=== PATIENT | female | born 1985 | race Caucasian/White ===

== ENCOUNTER 2016-11-26 19:31 | Outpatient (CLI) | payer MEDICAID ==
[~2016-11-26] VITALS: Ht 154.9 cm; Wt 83.5 kg
[2016-11-26 19:43] VITALS: Ht 154.9 cm; Wt 83.5 kg
[2016-11-26] MEDS ORDERED: NITR-58 PO (19:44)
[2016-11-26] MEDS ORDERED: PNV91TAB6 PO (19:44)
--- NOTE | 2016-11-26 20:55 | CONS ---
Date/Time of Note Date/Time of Note DATE: 11/26/16 TIME: 20:51 Assessment/Plan Assessment/Plan Additional Assessment/Plan No e/o ptl. Discharge home with ptl precautions. Complete antibiotic course. F/u with OB. Consultation Date/Type/Reason Admit Date/Time Hx of Present Illness at 25 weeks with cramping, urinary frequency. Patient already diagnosed with UTI and on macrobid for last 2 days. Reports cramping has subsided. Denies LOF, VB. +FM. Getting PNC, no complications. Past Medical History Medical History: no pertinent history Past Surgical History Past Surgical Hx: no surgical history Social History Other Social History Denies habits. Exam/Review of Systems Exam Gen: NAD HEENT: NCAT CV: RRR Pulm: CTAB Abd: gravid, NT Back: no CVAT Ext: NT FHT: reassuring [place]: no BRYN Bell Nov 26, 2016 20:55
--- NOTE | 2016-11-26 21:09 | TRIAGE ---
OB Triage Datetime Report Generated by CPN: 11/26/2016 21:09 Datetime: 11/26/2016 20:45 Stage of : OB Triage Datetime: 11/26/2016 19:54 Vaginal Exam Membrane Status: Intact Datetime: 11/26/2016 19:51 Temperature Route: Oral Datetime: 11/26/2016 19:40 Stage of : OB Triage Assessment Type: Triage EGA: 25.0 Maternal Assessment Level of Consciousness: Fully Conscious Headache: Denies Blurred Vision: No Respiratory Effort: Unlabored; Regular Rhythm; Equal Expansion Nausea/Vomiting: Denies RUQ Epigastric Pain: Denies Facial Edema: None Temperature Route: Axillary Fall Risk Assessment History of Falling: (0) No Secondary Diagnosis: (0) No Ambulatory Aid: (0) Bedrest/Nurse Assist IV Therapy: (0) No Gait: (0) Normal/Bedrest/Immobile Mental Status: (0) Oriented to Own Ability Fall Score: 0 Fall Risk Score Definition: No Risk: No action required Datetime: 11/26/2016 19:39 Time of Arrival: 11/26/2016 19:27 Arrived By: Wheelchair Arrived From: Home Chief Complaint: CRAMPING WITH VAG DISCHARGE Movement: Present Contractions: Unsure Contractions: irregular Rupture of Membranes: Denies Vaginal Bleeding: None Vaginal Discharge: Present Recent Sexual Intercouse: Denies Abdominal Trauma: Not Applicable Patient Complaints: Cramping Additional Patient Complaints: TAKING MACROBID FOR UTI Provider Notified: 23 Initial Plan: EFM, CALL OB
== END 2016-11-26 20:45 | disposition home or self-care (01) ==
LOC: OBT 19:31 → L-D 19:32 → OBT 20:45
PROVIDERS: ATTEND Obstetrics & Gynecology
DX: O23.42 Unspecified infection of urinary tract in pregnancy, second trimester (principal); Z3A.25 25 weeks gestation of pregnancy
CPT/HCPCS: G0463

== ENCOUNTER 2017-01-20 20:00 | Outpatient (CLI) | payer MEDICAID ==
[~2017-01-20] VITALS: Ht 152.4 cm; Wt 84.4 kg
[~2017-01-20 20:00] MED LIST: NITR-58 PO; PNV91TAB6 PO
[2017-01-20] MEDS ORDERED: CEPH500C PO (20:18)
[2017-01-20 21:00] VITALS: Ht 152.4 cm; Wt 84.4 kg
[2017-01-20 21:03] VITALS: BP 107/59; PULSE 93; RESP 18
[2017-01-20 21:46] LABS: ADD SCAN DIFF NO
[2017-01-20 21:48] LABS: BASOPHILS % 0.2 % (0.0-2.0); EOSINOPHILS # 0.1 10^3/ul (0.0-0.5); EOSINOPHILS % 0.9 % (0.0-7.0); HEMATOCRIT 36.4 % (37.0-47.0); HEMOGLOBIN 11.9 g/dl (12.0-16.0); LYMPHOCYTES # 2.2 10^3/ul (0.8-2.9); LYMPHOCYTES % 24.4 % (15.0-51.0); MEAN CORPUSCULAR HEMOGLOBIN 27.9 pg (29.0-33.0); MEAN CORPUSCULAR HGB CONC 32.7 g/dl (32.0-37.0); MEAN CORPUSCULAR VOLUME 85.4 fl (82.0-101.0); MEAN PLATELET VOLUME 10.4 fl (7.4-10.4); MONOCYTE # 0.7 10^3/ul (0.3-0.9); MONOCYTES % 7.7 % (0.0-11.0); NEUTROPHIL # 6.1 10^3/ul (1.6-7.5); NEUTROPHILS % 66.3 % (39.0-77.0); PLATELET COUNT 212 10^3/UL (140-415); RED BLOOD COUNT 4.26 10^6/ul (4.20-5.40); WHITE BLOOD COUNT 9.2 10^3/ul (4.8-10.8)
[2017-01-20 21:52] LABS: ADD UMIC YES; UR BILIRUBIN (Dip) NEGATIVE (NEGATIVE); UR BLOOD (Dip) NEGATIVE (NEGATIVE); UR COLOR LT. YELLOW (YELLOW); UR GLUCOSE (Dip) NEGATIVE (NEGATIVE); UR KETONES (Dip) NEGATIVE (NEGATIVE); UR LEUKOCYTE ESTERASE (Dip) TRACE (NEGATIVE); UR NITRITE (Dip) NEGATIVE (NEGATIVE); UR TOTAL PROTEIN (Dip) NEGATIVE (NEGATIVE); UR UROBILINOGEN (Dip) 0.2 E.U./dL (0.1-1.0)
[2017-01-20 22:00] LABS: UR CLARITY SL.HAZY (CLEAR)
[2017-01-20 22:01] LABS: UR BACTERIA RARE; UR SQUAMOUS EPITHELIAL CELL MODERATE; URINE RBCS NONE SEEN /HPF (0)
[2017-01-20 22:05] LABS: ALBUMIN 3.9 g/dl (3.3-4.9); ALBUMIN/GLOBULIN RATIO 1.39; BILIRUBIN,INDIRECT 0.1 mg/dl (0-1.1); BILIRUBIN,TOTAL 0.1 mg/dl (0.2-1.3); CALCIUM 9.3 mg/dl (8.4-10.2); CREATININE 0.51 mg/dl (0.44-1.00); POTASSIUM 3.9 mmol/L (3.5-5.1); TOTAL PROTEIN 6.7 g/dl (6.1-8.1)
--- NOTE | 2017-01-20 23:09 | PN ---
Triage Information Date/Time 01/20/17 2210 Weeks of Gestation 32w6d : 4 Para: 2 Diabetes: none Hypertention: none Additional information lt lower back ahe on cephalexin for UTI on second day had another episode of UTI mo ago txed with macrobid urinary frequency Objective Vital Signs Date Time Temp Pulse Resp B/P Pulse Ox O2 Delivery O2 Flow Rate FiO2 01/20/17 21:03 98.0 93 18 107/59 Room Air Heart Rate: 140's Contractions: None Exam CVA neg for tenderness abdomen soft no tenderness Results/Medications Result Diagram: 01/20/17213701/20/172137 Results 24 hrs Laboratory Tests Test 01/20/17 21:38 White Blood Count 9.2 Red Blood Count 4.26 Hemoglobin 11.9 L Hematocrit 36.4 L Mean Corpuscular Volume 85.4 Mean Corpuscular Hemoglobin 27.9 L Mean Corpuscular Hemoglobin Concent 32.7 Red Cell Distribution Width 13.0 Platelet Count 212 Mean Platelet Volume 10.4 Neutrophils % 66.3 Lymphocytes % 24.4 Monocytes % 7.7 Eosinophils % 0.9 Basophils % 0.2 Nucleated Red Blood Cells % 0.0 Neutrophils # 6.1 Lymphocytes # 2.2 Monocytes # 0.7 Eosinophils # 0.1 Basophils # 0.0 Nucleated Red Blood Cells # 0.0 Urine Color LT. YELLOW Urine Clarity SL.HAZY Urine pH 6.5 Urine Specific [place] <=1.005 L Urine Ketones NEGATIVE Urine Nitrite NEGATIVE Urine Bilirubin NEGATIVE Urine Urobilinogen 0.2 E.U./dL Urine Leukocyte Esterase TRACE H Urine Microscopic RBC NONE SEEN Urine Microscopic WBC 5-10 Urine Squamous Epithelial Cells MODERATE Urine Bacteria RARE Urine Hemoglobin NEGATIVE Urine Glucose NEGATIVE Urine Total Protein NEGATIVE Sodium Level 137 Potassium Level 3.9 Chloride Level 107 Carbon Dioxide Level 24 Anion Gap 10 Blood Urea Nitrogen 7 Creatinine 0.51 Glucose Level 102 Calcium Level 9.3 Total Bilirubin 0.1 L Direct Bilirubin 0.00 Indirect Bilirubin 0.1 Aspartate Amino Transf (AST/SGOT) 17 Alanine Aminotransferase (ALT/SGPT) 22 Alkaline Phosphatase 114 Total Protein 6.7 Albumin 3.9 Globulin 2.80 Albumin/Globulin Ratio 1.39 Medications cephalexin Assessment/Plan IUP 32w6d not in labor UTI plan continue antibiotica urine culture sent RTH prn with routine labor instructions given increase fluid intake d/s home NOHEMY PATE MD Jan 20, 2017 23:09
--- NOTE | 2017-01-21 03:14 | TRIAGE ---
OB Triage Datetime Report Generated by CPN: 01/21/2017 03:13 Datetime: 01/20/2017 22:10 Stage of : OB Triage Datetime: 01/20/2017 21:15 Stage of : OB Triage Datetime: 01/20/2017 20:20 Assessment Type: Triage Maternal Assessment Level of Consciousness: Fully Conscious DTR's/Clonus: DTRs 2+; No Clonus Headache: Denies Blurred Vision: No Respiratory Effort: Unlabored; Regular Rhythm; Equal Expansion Breath Sounds, Left: Clear and Equal Breath Sounds, Right: Clear and Equal Nausea/Vomiting: Denies RUQ Epigastric Pain: Denies Lower Extremities Edema: None Degree: None Upper Extremities Edema: None Degree: None Facial Edema: None Fall Risk Assessment History of Falling: (0) No Secondary Diagnosis: (0) No Ambulatory Aid: (0) Bedrest/Nurse Assist IV Therapy: (0) No Gait: (0) Normal/Bedrest/Immobile Mental Status: (0) Oriented to Own Ability Fall Score: 0 Fall Risk Score Definition: No Risk: No action required Datetime: 01/20/2017 20:19 Labor Evaluation Monitor Mode: External Contraction Comments: Applied Heart Rate Monitor Mode: External US Comments: Applied Datetime: 01/20/2017 20:15 Time of Arrival: 01/20/2017 19:53 EGA: 32.6 Arrived By: Wheelchair Arrived From: Home Chief Complaint: Back pain, pelvic pressure Movement: Present Contractions: Denies/Absent Rupture of Membranes: Denies Vaginal Bleeding: None Vaginal Discharge: Denies Recent Sexual Intercouse: Denies Abdominal Trauma: Not Applicable Patient Complaints: Back Pain; Other Initial Plan: EFM X2, UA, CBC Datetime: 11/26/2016 19:40 EGA: 25.0 Fall Score: 0 Fall Risk Score Definition: No Risk: No action required Datetime: 11/26/2016 19:39 Time Provider Notified: 11/26/2016 20:23 Provider Notified: UAJE
== END 2017-01-20 22:47 | disposition home or self-care (01) ==
LOC: OBT 20:00 → L-D 20:02 → OBT 22:47
PROVIDERS: ATTEND Obstetrics & Gynecology
DX: O23.43 Unspecified infection of urinary tract in pregnancy, third trimester (principal); Z3A.32 32 weeks gestation of pregnancy
CPT/HCPCS: 80053; 81001; 85025; 87086; Z7500; G0463

== ENCOUNTER 2017-02-24 13:29 | Inpatient (IN) | payer MEDICAID ==
[~2017-02-24] VITALS: Ht 154.9 cm; Wt 86.8 kg
[~2017-02-24 13:29] MED LIST changes: +CEPH500C PO; -NITR-58 PO
[2017-02-24] MEDS ORDERED: FERR236T PO (14:06)
[2017-02-24] MEDS ORDERED: NITR-58 PO (14:07)
[2017-02-24 14:08] VITALS: BP 135/75; PULSE 77; RESP 18
--- NOTE | 2017-02-24 15:50 | RADRPT ---
PROCEDURE: OB ultrasound for biophysical profile CLINICAL INDICATION: Contractions TECHNIQUE: Multiple sonographic images of the pelvis were obtained. Transabdominal view of the gr avid uterus are available for review. The images were reviewed on a PACS workstation. COMPARISON: None FINDINGS: breathing movement = 2/2 tone = 2/2 motion = 2/2 MAKENZIE = 2/2 MAKENZIE = 9.7 cm Single live intrauterine with cardiac activity. heart rate equals 143 beats p er minute. Presentation is cephalic. The placenta is left lateral, grade II. IMPRESSION: 1. Single viable intrauterine gestation. 2. Biophysical profile = 8/8. 3. MAKENZIE = 9.7 cm. RPTAT: KK .Ousmane Dodson MD, MD Date Time Electronically viewed and signed by .Ousmane Dodson MD, MD on 02/24/2017 15:50 .B/
[2017-02-24] MEDS ORDERED: LACTATED RINGER'S 1,000 ML IV SCH (16:15)
[2017-02-24] MEDS ORDERED: BUTORPHANOL 2 MG INJ IV PRN (16:30)
[2017-02-24] MEDS ORDERED: OXYTOCIN 30 UNITS/LR 500 ML IV SCH (16:30)
[2017-02-24] MEDS ORDERED: CARBOPROST 250 MCG INJ IM PRN (16:30)
[2017-02-24] MEDS ORDERED: OXYTOCIN 30 UNITS/LR 500 ML IV PRN (16:30)
[2017-02-24] MEDS ORDERED: MISOPROSTOL 200 MCG TAB PR PRN (16:30)
[2017-02-24] MEDS ORDERED: LIDOCAINE 1% (MPF) 30 ML INJ INJ PRN (16:30)
[2017-02-24] MEDS ORDERED: METHYLERGONOVINE 0.2 MG INJ IM PRN (16:30)
[2017-02-24 16:55] LABS: ADD SCAN DIFF NO
[2017-02-24] MEDS: OXYTOCIN 30 UNITS/LR 500 ML IV SCH ×4 (16:56→20:38)
[2017-02-24 16:57] LABS: BASOPHILS % 0.3 % (0.0-2.0); EOSINOPHILS % 0.3 % (0.0-7.0); HEMOGLOBIN 12.2 g/dl (12.0-16.0); LYMPHOCYTES # 2.2 10^3/ul (0.8-2.9); MEAN CORPUSCULAR HEMOGLOBIN 29.2 pg (29.0-33.0); MEAN CORPUSCULAR HGB CONC 33.9 g/dl (32.0-37.0); MEAN CORPUSCULAR VOLUME 86.1 fl (82.0-101.0); MEAN PLATELET VOLUME 11.5 fl (7.4-10.4); MONOCYTE # 0.5 10^3/ul (0.3-0.9); MONOCYTES % 4.6 % (0.0-11.0); NEUTROPHIL # 7.8 10^3/ul (1.6-7.5); NEUTROPHILS % 73.1 % (39.0-77.0); PLATELET COUNT 173 10^3/UL (140-415); RED BLOOD COUNT 4.18 10^6/ul (4.20-5.40); RED CELL DISTRIBUTION WIDTH 13.2 % (11.5-14.5); WHITE BLOOD COUNT 10.7 10^3/ul (4.8-10.8)
[2017-02-24] MEDS ORDERED: IBUPROFEN 600 MG TAB PO PRN (17:00)
[2017-02-24] MEDS ORDERED: ACETAMINOPHEN/CODEINE #3 TAB PO PRN ×3 (17:00→18:30)
[2017-02-24 17:14] LABS: INR 0.86; PROTIME 11.7 Sec (12.2-14.2); PT RATIO 0.9
[2017-02-24 17:15] LABS: PARTIAL THROMBOPLASTIN TIME 21.4 Sec (25.0-35.0)
--- NOTE | 2017-02-24 17:36 | HP ---
Date/Time of Note Date/Time of Note DATE: 02/24/17 TIME: 17:30 OB - History Hx of Present Free Text/Dictation 30 years old female 4 para 2 EDC March 11 at 37 weeks6/7 days admitted to [facility] in active labor cervical examination on admission cervix completely dilated 80-100% effacement vertex at -2 station contraction 2-3 minutes Chief Complaint: Labor Estimated Due Date: Mar 11, 2017 : 4 Para: 2 Spontaneous : 1 Care: Limited Care Ultrasounds: Normal mid trimester US Obstetrical Complications: None Medical Complications: None Past Family/Social History * Past Medical, Surgical, Family and Obstetric Histories reviewed from chart. Rubella: immune RPR/VDRL: Negative GBS Status: Negative HBsAG: Negative OB Admission Exam Vital Signs Vital Signs Vital Signs Date Time Temp Pulse Resp B/P Pulse Ox O2 Delivery O2 Flow Rate FiO2 02/24/17 14:08 98.1 77 18 135/75 96 Room Air Physical Exam HEENT: WNL Heart: Rhythm Normal Lungs: Clear, Equal Abdomen: WNL Extremities: Normal Cervical Dilatation: 10cm Effacement: Other (80%) Station: -2 Membranes: Ruptured Heart Rate: 130's Accelerations: Accelerations Present Decelerations: No Decelerations Varibility: Moderate Contractions on Admission: < 5 Minutes Apart Intensity: Firm Last 72 hours Lab Results CBC & BMP 02/24/17 16:40 OB Assessment/Plan Reason for admission: other (Attempt for normal vaginal delivery) YANET MYERS MD Feb 24, 2017 17:35
--- NOTE | 2017-02-24 17:39 | LDN ---
Date/Time of Note Date/Time of Note DATE: 02/24/17 TIME: 17:35 Delivery Summary Normal spontaneous vaginal delivery by Dr. MCKENNA in usual fashion without any complication Weeks of Gestation 37 weeks 6 /7 day Placenta Delivered: Spontaneously Meconium: none Episiotomy: No Laceration repair: None Anesthesia type: None Estimated blood loss: 250 Sponge & Needle done & correct: Yes All needle counts correct: Yes Any foreign bodies felt in the: No Problems: Infant Delivery Information Sex Infant Sex: female Apgars 1 Minute: 9 5 Minute: 9 Suctioning Nose & mouth suctioned at [place]: Yes Delee suction performed: No Umbilical Cord Umbilical cord with: 3 Vessels Cord presentations: nuchal cord Cord Blood was obtained: Yes YANET MYERS MD Feb 24, 2017 17:39
--- NOTE | 2017-02-24 17:41 | PN ---
Triage Information Date/Time Feb 24, 2017 at 14:00 Weeks of Gestation 37 weeks 6/ 7 day : 4 Para: 2 Diabetes: none Hypertention: none Objective Vital Signs Date Time Temp Pulse Resp B/P Pulse Ox O2 Delivery O2 Flow Rate FiO2 02/24/17 14:08 98.1 77 18 135/75 96 Room Air Heart Rate: 130's Contractions: < 5 Minutes Apart Results/Medications Result Diagram: 02/24/17 1640 Results 24 hrs Laboratory Tests Test 02/24/17 14:55 02/24/17 16:40 Membranes Rupture POSITIVE H White Blood Count 10.7 Red Blood Count 4.18 L Hemoglobin 12.2 Hematocrit 36.0 L Mean Corpuscular Volume 86.1 Mean Corpuscular Hemoglobin 29.2 Mean Corpuscular Hemoglobin Concent 33.9 Red Cell Distribution Width 13.2 Platelet Count 173 Mean Platelet Volume 11.5 H Neutrophils % 73.1 Lymphocytes % 21.0 Monocytes % 4.6 Eosinophils % 0.3 Basophils % 0.3 Neutrophils # 7.8 H Lymphocytes # 2.2 Monocytes # 0.5 Eosinophils # 0.0 Basophils # 0.0 Nucleated Red Blood Cells # 0.0 Prothrombin Time 11.7 L Prothrombin Time Ratio 0.9 INR International Normalized Ratio 0.86 Activated Partial Thromboplast Time 21.4 L Medications Current Medications Lactated Ringer's (Lr) 1,000 ml @ 125 mls/hr Q8H IV ; Start 02/24/17 at 16:15 Butorphanol Tartrate (Stadol) 2 mg Q2H PRN IV PAIN; Start 02/24/17 at 16:30 Lidocaine 30 ml 30 ml ONCE PRN INJ EPISIOTOMY/TEARING; Start 02/24/17 at 16:30 Oxytocin/Lactated Ringer's 500 ml @ 125 mls/hr ONCE IV ; Start 02/24/17 at 16: 30 Oxytocin/Lactated Ringer's 500 ml @ 0 mls/hr ONCE PRN IV For Hemorrhage Management; Start 02/24/17 at 16:30 Methylergonovine Maleate (Methergine) 0.2 mg ONCE PRN IM VAGINAL BLEEDING; Start 02/24/17 at 16:30 Carboprost Tromethamine (Hemabate) 250 mcg ONCE PRN IM VAGINAL BLEEDING; Start 02/24/17 at 16:30 Misoprostol (Cytotec) 1,000 mcg ONCE PRN [place] VAGINAL BLEEDING; Start 02/24/17 at 16:30 Ibuprofen (Motrin) 600 mg ONCE PRN PO Mild Pain (Pain Score 1-3) Last administered on 02/24/17t 16:55; Admin Dose 600 MG; Start 02/24/17 at 17:00; Stop 02/26/17 at 16:59 Acetaminophen/ Codeine Phosphate (Tylenol No.3) 2 tab ONCE PRN PO Moderate to Severe Pain (4-10); Start 02/24/17 at 17:00; Stop 02/26/17 at 16:59 YANET MYERS MD Feb 24, 2017 17:40
[2017-02-24 18:00] VITALS: BP 124/69; PULSE 65; RESP 19
[2017-02-24] MEDS ORDERED: OXYCODONE/ASPIRIN (4.88/325) TAB PO PRN ×2 (18:30)
[2017-02-24] MEDS ORDERED: ACETAMINOPHEN 325 MG TAB PO PRN (18:30)
[2017-02-24] MEDS ORDERED: BENZOCAINE 20% 56 ML SPRAY TOP PRN (18:30)
[2017-02-24] MEDS ORDERED: LANOLIN 7 GM TUBE TOP PRN (18:30)
[2017-02-24] MEDS ORDERED: DIBUCAINE 1% 30 GM OINT PR PRN (18:30)
[2017-02-24] MEDS ORDERED: ONDANSETRON 4 MG INJ IV PRN (18:30)
--- NOTE | 2017-02-24 18:43 | TRIAGE ---
OB Triage Datetime Report Generated by CPN: 02/24/2017 18:42 Datetime: 02/24/2017 18:00 Stage of : Recovery Pain Assessment Pain Scale: 3 Pain Presence: Intermittent Pain Type: Cramping Pain Location: Perineum Pain Goal: 3 Pain Relief Measures: Pain Medication Given; Comfort Measures Datetime: 02/24/2017 17:45 Stage of : Recovery Pain Assessment Pain Scale: 3 Pain Presence: Intermittent Pain Type: Cramping Pain Location: Perineum Pain Goal: 3 Pain Relief Measures: Pain Medication Given; Comfort Measures Pain Assessment Comments: bed bath, attempted to void on bedpan for 15 mins, new pitocin bag hung, baby given eyes and thighs Datetime: 02/24/2017 17:30 Stage of : Recovery Pain Assessment Pain Scale: 3 Pain Presence: Intermittent Pain Type: Cramping Pain Location: Perineum Pain Goal: 3 Pain Relief Measures: Pain Medication Given; Comfort Measures Datetime: 02/24/2017 17:15 Stage of : Recovery Pain Assessment Pain Scale: 3 Pain Presence: Intermittent Pain Type: Cramping Pain Location: Perineum Pain Goal: 3 Pain Relief Measures: Pain Medication Given; Comfort Measures Datetime: 02/24/2017 17:00 Stage of : Recovery Pain Assessment Pain Scale: 3 Pain Presence: Intermittent Pain Type: Cramping Pain Location: Perineum Pain Goal: 3 Pain Relief Measures: Pain Medication Given; Comfort Measures Datetime: 02/24/2017 16:45 Stage of : Recovery Pain Assessment Pain Scale: 3 Pain Presence: Intermittent Pain Type: Cramping Pain Location: Perineum Pain Goal: 3 Pain Relief Measures: Pain Medication Given; Comfort Measures Datetime: 02/24/2017 16:30 Stage of : Recovery Pain Assessment Pain Scale: 3 Pain Presence: Intermittent Pain Type: Cramping Pain Location: Perineum Pain Goal: 3 Pain Relief Measures: Pain Medication Given; Comfort Measures Datetime: 02/24/2017 16:15 Assessment Type: Admission Assessment Maternal Assessment Level of Consciousness: Fully Conscious DTR's/Clonus: DTRs 2+; No Clonus Headache: Denies Blurred Vision: No Respiratory Effort: Unlabored; Regular Rhythm; Equal Expansion Breath Sounds, Left: Clear and Equal Breath Sounds, Right: Clear and Equal Nausea/Vomiting: Denies RUQ Epigastric Pain: Denies Lower Extremities Edema: None Upper Extremities Edema: None Facial Edema: None Temperature Route: Oral Fall Risk Assessment History of Falling: (0) No Secondary Diagnosis: (0) No Ambulatory Aid: (0) Bedrest/Nurse Assist IV Therapy: (20) Yes Gait: (0) Normal/Bedrest/Immobile Mental Status: (0) Oriented to Own Ability Fall Score: 20 Fall Risk Score Definition: No Risk: No action required Pain Assessment Pain Scale: 6 Pain Presence: Intermittent Pain Type: Cramping Pain Location: Perineum Pain Goal: 3 Pain Relief Measures: Pain Medication Given; Comfort Measures Pain Assessment Comments: motrin 600mg po given Datetime: 02/24/2017 16:04 Comments: , BABY GIRL, SEE DELIVERY RECORD FOR DETAILS. Datetime: 02/24/2017 16:00 Labor Evaluation Frequency: 2-7 Monitor Mode: External Duration (sec)2399: 50-100 Quality: Mild Pattern: Normal: <= 5 Contractions in 10 Minutes Resting Tone [place]: Relaxed Heart Rate FHR Baseline Rate: 135 Monitor Mode: External US FHR Baseline Changes: No Baseline Change Variability: Moderate 6-25 bpm Accelerations: 15X15 Decelerations: None Category: Category I Pain Assessment Pain Scale: 9 Pain Presence: Intermittent Pain Type: Contraction Pain Location: Abdomen; Perineum Datetime: 02/24/2017 15:56 Vaginal Exam Dilatation (cms): 10.0 Effacement (%): 100 Station: 2 Exam By: SGARCIA Datetime: 02/24/2017 15:54 Vaginal Exam Dilatation (cms): 6.5 Effacement (%): 100 Station: 0 Exam By: CKUNIYOSHI Vaginal Bleeding: Normal Show Cervix, Consistency: Soft Cervix, Position: Midposition Presentation 'A': Breech Datetime: 02/24/2017 15:00 Headache: Denies Blurred Vision: No RUQ Epigastric Pain: Denies Facial Edema: None Labor Evaluation Frequency: 2-7 Monitor Mode: External Duration (sec)2399: 50-90 Quality: Mild Pattern: Normal: <= 5 Contractions in 10 Minutes Resting Tone [place]: Relaxed Heart Rate FHR Baseline Rate: 135 Monitor Mode: External US FHR Baseline Changes: No Baseline Change Variability: Moderate 6-25 bpm Accelerations: 15X15 Decelerations: None Pain Assessment Pain Scale: 7 Pain Presence: Intermittent Pain Type: Contraction Pain Location: Abdomen Datetime: 02/24/2017 14:15 Vaginal Exam Dilatation (cms): 0.0 Effacement (%): 80 Station: -2 Exam By: CKUNIYOSHI Vaginal Bleeding: Normal Show Cervix, Consistency: Soft Cervix, Position: Posterior Presentation 'A': Cephalic Datetime: 01/20/2017 23:30 Time of Arrival: 02/24/2017 13:25 EGA: 37.6 Arrived By: Ambulatory Arrived From: Home Chief Complaint: CTX - 1300, BLEEDING LIKE A LIGHT PERIOD FROM 0600, POSSIBLE SROM [id number], NO LEAK ING SINCE Movement: Present Contractions: Regular Time Contractions Began: 02/24/2017 13:00 Contractions: Q5MIN Rupture of Membranes: Unsure Vaginal Bleeding: Small Vaginal Discharge: Present Recent Sexual Intercouse: Yes Abdominal Trauma: Not Applicable Patient Complaints: Contractions Initial Plan: EFM x2, SVE, BPP, ROM+ Datetime: 01/20/2017 22:00 Stage of : OB Triage Labor Evaluation Frequency: X2 Monitor Mode: External Duration (sec)2399: 60 Quality: Mild Pattern: Normal: <= 5 Contractions in 10 Minutes Heart Rate FHR Baseline Rate: 140 Monitor Mode: External US FHR Baseline Changes: No Baseline Change Variability: Moderate 6-25 bpm Accelerations: 15X15 Decelerations: None Category: Category I Datetime: 01/20/2017 21:43 Monitor Mode: External US Datetime: 01/20/2017 21:31 Monitor Mode: External Monitor Mode: External US Datetime: 01/20/2017 21:00 Stage of : OB Triage Labor Evaluation Frequency: X2 Monitor Mode: External Duration (sec)2399: 50-70 Quality: Mild Pattern: Normal: <= 5 Contractions in 10 Minutes Heart Rate FHR Baseline Rate: 135 Monitor Mode: External US FHR Baseline Changes: No Baseline Change Variability: Moderate 6-25 bpm Accelerations: 15X15 Decelerations: None Category: Category I Datetime: 01/20/2017 20:20 Fall Score: 0 Fall Risk Score Definition: No Risk: No action required Datetime: 01/20/2017 20:15 EGA: 32.6 Datetime: 11/26/2016 19:40 EGA: 25.0 Fall Score: 0 Fall Risk Score Definition: No Risk: No action required Membranes Ruptured Date/Time: 02/24/2017 05:30 Membranes Rupture Method: Spontaneous Amniotic Fluid Color: Clear Amniotic Fluid Amount: Small Amniotic Fluid Odor: None
[2017-02-24 20:05] VITALS: BP 136/69; PULSE 75; RESP 20
[2017-02-24] MEDS: SENNA/DOCUSATE NA (8.6MG/50MG) TAB PO SCH (20:38)
[2017-02-24] MEDS: WITCH HAZEL/GLYCERIN PAD PR PRN (20:42)
[2017-02-24 22:33] LABS: BARBITURATES Negative (NEGATIVE); BENZODIAZEPINES Negative (NEGATIVE); CANNABINOIDS Negative (NEGATIVE); COCAINE Negative (NEGATIVE); OPIATES Negative (NEGATIVE)
[2017-02-24] MEDS: IBUPROFEN 600 MG TAB PO SCH (23:25)
[2017-02-25 00:35] VITALS: BP 122/66; PULSE 70; RESP 18
[2017-02-25 03:50] VITALS: BP 120/56; PULSE 74; RESP 17
[2017-02-25] MEDS: IBUPROFEN 600 MG TAB PO SCH ×3 (05:21→17:26)
[2017-02-25 07:35] VITALS: BP 120/70; PULSE 83; RESP 18
[2017-02-25] MEDS: WITCH HAZEL/GLYCERIN PAD PR PRN (08:51)
[2017-02-25] MEDS: SENNA/DOCUSATE NA (8.6MG/50MG) TAB PO SCH ×2 (08:51→21:17)
[2017-02-25 11:04] LABS: ADD SCAN DIFF NO
[2017-02-25 11:07] LABS: BASOPHILS % 0.2 % (0.0-2.0); EOSINOPHILS # 0.1 10^3/ul (0.0-0.5); EOSINOPHILS % 0.5 % (0.0-7.0); HEMATOCRIT 32.9 % (37.0-47.0); HEMOGLOBIN 10.5 g/dl (12.0-16.0); LYMPHOCYTES % 21.7 % (15.0-51.0); MEAN CORPUSCULAR HEMOGLOBIN 27.8 pg (29.0-33.0); MEAN CORPUSCULAR HGB CONC 31.9 g/dl (32.0-37.0); MEAN PLATELET VOLUME 11.5 fl (7.4-10.4); MONOCYTE # 0.6 10^3/ul (0.3-0.9); MONOCYTES % 6.3 % (0.0-11.0); NEUTROPHIL # 6.6 10^3/ul (1.6-7.5); NEUTROPHILS % 70.8 % (39.0-77.0); PLATELET COUNT 160 10^3/UL (140-415); RED BLOOD COUNT 3.78 10^6/ul (4.20-5.40); RED CELL DISTRIBUTION WIDTH 13.7 % (11.5-14.5); WHITE BLOOD COUNT 9.4 10^3/ul (4.8-10.8)
--- NOTE | 2017-02-25 15:35 | PN ---
Date/Time of Note Date/Time of Note DATE: 02/25/17 TIME: 15:35 OB Subjective Subjective Subjective Post normal vaginal delivery day 1 Afebrile vital signs are stable abdomen soft lochia moderate uterus firm extremity normal ambulation encouraged. Laboratory Tests Test 02/24/17 16:40 02/24/17 21:45 02/25/17 10:49 White Blood Count 10.710^3/ul 9.410^3/ul Red Blood Count 4.1810^6/ul 3.7810^6/ul Hemoglobin 12.2g/dl 10.5g/dl Hematocrit 36.0% 32.9% Mean Corpuscular Volume 86.1fl 87.0fl Mean Corpuscular Hemoglobin 29.2pg 27.8pg Mean Corpuscular Hemoglobin Concent 33.9g/dl 31.9g/dl Red Cell Distribution Width 13.2% 13.7% Platelet Count 25166^3/UL 19169^3/UL Mean Platelet Volume 11.5fl 11.5fl Neutrophils % 73.1% 70.8% Lymphocytes % 21.0% 21.7% Monocytes % 4.6% 6.3% Eosinophils % 0.3% 0.5% Basophils % 0.3% 0.2% Neutrophils # 7.810^3/ul 6.610^3/ul Lymphocytes # 2.210^3/ul 2.010^3/ul Monocytes # 0.510^3/ul 0.610^3/ul Eosinophils # 0.010^3/ul 0.110^3/ul Basophils # 0.010^3/ul 0.010^3/ul Nucleated Red Blood Cells # 0.010^3/ul 0.010^3/ul Prothrombin Time 11.7Sec Prothrombin Time Ratio 0.9 INR International Normalized Ratio 0.86 Activated Partial Thromboplast Time 21.4Sec Urine Opiates Screen Negative Urine Barbiturates Negative Urine Amphetamines Screen Negative Urine Benzodiazepines Screen Negative Urine Cocaine Screen Negative Urine Cannabinoids Negative Current Medications Medications (Trade) Dose Ordered Sig/Sana Route PRN Reason Start Time Stop Time Status Last Admin Dose Admin Lactated Ringer's (Lr) 1,000 ml @ 125 mls/hr Q8H IV 02/24/17 16:15 02/24/17 18:13 DC Butorphanol Tartrate (Stadol) 2 mg Q2H PRN IV PAIN 02/24/17 16:30 02/24/17 18:13 DC Lidocaine 30 ml 30 ml ONCE PRN INJ EPISIOTOMY/TEARING 02/24/17 16:30 02/24/17 18:13 DC Oxytocin/Lactated Ringer's 500 ml @ 125 mls/hr ONCE -MAY REPEAT X1 IV 02/24/17 16:30 02/24/17 18:13 DC 02/24/17 16:58 Oxytocin/Lactated Ringer's 500 ml @ 125 mls/hr ONCE IV 02/24/17 16:30 02/24/17 18:13 DC Oxytocin/Lactated Ringer's 500 ml @ 0 mls/hr ONCE PRN IV For Hemorrhage Management 02/24/17 16:30 02/24/17 18:13 DC Methylergonovine Maleate (Methergine) 0.2 mg ONCE PRN IM VAGINAL BLEEDING 02/24/17 16:30 02/24/17 18:13 DC Carboprost Tromethamine (Hemabate) 250 mcg ONCE PRN IM VAGINAL BLEEDING 02/24/17 16:30 02/24/17 18:13 DC Misoprostol (Cytotec) 1,000 mcg ONCE PRN [place] VAGINAL BLEEDING 02/24/17 16:30 02/24/17 18:13 DC Ibuprofen (Motrin) 600 mg ONCE PRN PO Mild Pain (Pain Score 1-3) 02/24/17 17:00 02/24/17 18:13 DC 02/24/17 16:55 Acetaminophen/ Codeine Phosphate 2 tab 2 tab ONCE PRN PO Moderate to Severe Pain (4-10) 02/24/17 17:00 02/24/17 18:13 DC Oxytocin/Lactated Ringer's 500 ml @ 125 mls/hr Q4H IV 02/24/17 18:10 02/25/17 02:09 DC 02/24/17 20:38 Ibuprofen (Motrin) 600 mg Q6 PO 02/25/17 00:00 02/25/17 11:40 Acetaminophen (Tylenol Tab) 650 mg Q4H PRN PO PAIN LEVEL 1-5 02/24/17 18:30 Acetaminophen/ Codeine Phosphate (Tylenol No.3) 1 tab Q4H PRN PO PAIN LEVEL 1-5 02/24/17 18:30 Acetaminophen/ Codeine Phosphate (Tylenol No.3) 2 tab Q4H PRN PO PAIN LEVEL 6-10 02/24/17 18:30 Oxycodone/Aspirin (Percodan) 1 tab Q3H PRN PO PAIN LEVEL 1-5 02/24/17 18:30 Oxycodone/Aspirin (Percodan) 2 tab Q3H PRN PO PAIN LEVEL 6-10 02/24/17 18:30 Ondansetron HCl (Zofran Inj) 4 mg Q6H PRN IV NAUSEA AND/OR VOMITING 02/24/17 18:30 Senna/Docusate Sodium (Senokot-S) 1 tab BID PO 02/24/17 21:00 02/25/17 08:51 Witch Ofe/ Glycerin (Tucks Pads) 1 pad BEDSIDE MEDICATION PRN [place] HEMORRHOID/EPISIOTMY PAIN 02/24/17 18:30 02/25/17 08:51 Benzocaine (Dermoplast [place]) 1 spray BEDSIDE MEDICATION PRN TOP HEMORRHOID/EPISIOTMY PAIN 02/24/17 18:30 02/24/17 20:42 Dibucaine (Nupercainal) 1 applic BEDSIDE MEDICATION PRN [place] HEMORRHOID/EPISIOTMY PAIN 02/24/17 18:30 Lanolin (Hnk-U-Qfbkym) 1 applic BEDSIDE MEDICATION PRN TOP BEDSIDE FOR LISA TO NIPPLES 02/24/17 18:30 02/24/17 20:43 Measles/Mumps/ Rubella Vaccine Live (Mmr Ii Vaccine) 0.5 ml ONCE ONCE SC* 02/26/17 09:00 02/26/17 09:01 YANET MYERS MD Feb 25, 2017 15:35
[2017-02-25 16:24] VITALS: BP 108/57; PULSE 77; RESP 19
[2017-02-25 20:10] VITALS: BP 126/54; PULSE 80; RESP 17
[2017-02-26 04:15] VITALS: BP 112/54; PULSE 68; RESP 17
[2017-02-26] MEDS: IBUPROFEN 600 MG TAB PO SCH ×2 (05:13)
[2017-02-26 08:25] VITALS: BP 107/56; PULSE 69; RESP 20
[2017-02-26] MEDS ORDERED: MEASLES,MUMPS,RUBELLA VACCINE INJ SC* ONE (09:00)
[2017-02-26] MEDS: SENNA/DOCUSATE NA (8.6MG/50MG) TAB PO SCH (09:28)
--- NOTE | 2017-02-26 10:29 | PD.PPDC ---
PEN RIDER Discharge Instruction Condition Patient Condition: Good Diet Diet: Resume Regular Diet Activity/Restrictions Activity: Normal Activity May Shower Follow-up Follow-up with Physician: 2, Week/Weeks Provider Information: Appointment clinic in 2 weeks for check Return to clinic for [facility] Instructions: Fever greater than 101 Chills Worsening abdominal pain Excessive Vaginal Bleeding More than 2 pads per hour Unable to tolerate diet YANET MYERS MD Feb 26, 2017 10:29
--- NOTE | 2017-02-26 10:31 | DS ---
Date/Time of Note Date/Time of Note DATE: 02/26/17 TIME: 10:29 Discharge Summary Admission/Discharge Info Admit Date/Time Feb 24, 2017 at 14:00 Discharge Date/Time February 26, 2017 at 10:30 AM Discharge Diagnosis Day 2 post normal vaginal delivery Patient Condition: Good Procedures Normal vaginal delivery Hx of Present Illness Term admitted in labor Hospital Course Satisfactory uneventful Home Meds Reported Medications Nitrofurantoin Monohyd Macrocr (Macrobid) 100 Mg Capsr, 100 MG PO DAILY, CAP 02/24/17 Ferrous Gluconate (Iron) 236 Mg Tablet, 236 MG PO DAILY, TAB 02/24/17 Pnv95/Ferrous Fumarate/FA ( Vitamin Tablet) 1 Each Tablet, 1 EACH PO, TAB 11/26/16 Discontinued Reported Medications Cephalexin* (Cephalexin*) 500 Mg Capsule, 500 MG PO Q8, #21 CAP 01/20/17 Follow-up Plan instructions given recommended to make appointment to be seen at the clinic in 2 weeks Primary Care Provider Care Physician No Primary Time spent on discharge: < 30 minutes Pending Labs Laboratory Tests Test 02/25/17 10:49 White Blood Count 9.410^3/ul (4.8-10.8) Red Blood Count 3.7810^6/ul (4.20-5.40) Hemoglobin 10.5g/dl (12.0-16.0) Hematocrit 32.9% (37.0-47.0) Mean Corpuscular Volume 87.0fl (82.0-101.0) Mean Corpuscular Hemoglobin 27.8pg (29.0-33.0) Mean Corpuscular Hemoglobin Concent 31.9g/dl (32.0-37.0) Red Cell Distribution Width 13.7% (11.5-14.5) Platelet Count 86490^3/UL (140-415) Mean Platelet Volume 11.5fl (7.4-10.4) Neutrophils % 70.8% (39.0-77.0) Lymphocytes % 21.7% (15.0-51.0) Monocytes % 6.3% (0.0-11.0) Eosinophils % 0.5% (0.0-7.0) Basophils % 0.2% (0.0-2.0) Neutrophils # 6.610^3/ul (1.6-7.5) Lymphocytes # 2.010^3/ul (0.8-2.9) Monocytes # 0.610^3/ul (0.3-0.9) Eosinophils # 0.110^3/ul (0.0-0.5) Basophils # 0.010^3/ul (0.0-0.1) Nucleated Red Blood Cells # 0.010^3/ul (0.0-0.0) YANET MYERS MD Feb 26, 2017 10:31
== END 2017-02-26 14:42 | disposition home or self-care (01) | DRG 775 ==
LOC: OBT 13:29 → L-D 13:31 → OBT 14:00 → L-D 14:00 → PP1 17:59
PROVIDERS: ADMIT Obstetrics & Gynecology; ATTEND Obstetrics & Gynecology
PROC: 10E0XZZ Delivery of Products of Conception, External Approach (ICD-10-PCS; principal; 2017-02-24)
DX: O80 Encounter for full-term uncomplicated delivery (principal); Z3A.37 37 weeks gestation of pregnancy
CPT/HCPCS: 76818; 80307; 84112; 85025; 85610; 85730; 86592; 86900; 86901; G0463; J2590; J7120

== ENCOUNTER 2018-04-18 11:07 | Day surgery (SDC) | END 2018-04-18 15:46 | disposition home or self-care (01) ==